=== PATIENT | female | born 1990 | race American Indian/Alaskan Native ===

== ENCOUNTER 2018-01-17 13:16 | Emergency (ER) | payer MEDICAID ==
[2018-01-17 14:36] LABS: Hematocrit 36.2 % (30.3-42.9); Hemoglobin 12.4 gm/dl (10.1-14.3); Mean Corpuscular HGB Conc 34 % (30-34); Mean Corpuscular Hemoglobin 29 pg (28-32); Mean Corpuscular Volume 84 fl (79-97); Platelet Count 210 K/mm3 (140-440); Red Blood Count 4.29 M/mm3 (3.65-5.03); Red Cell Distribution Width 13.4 % (13.2-15.2)
[2018-01-17 14:51] LABS: BUN/Creatinine Ratio 14; Blood Urea Nitrogen 7 mg/dL (7-17); Hemolysis Index 8
--- NOTE | 2018-01-17 16:54 | Ultrasound Report ---
FINAL REPORT EXAM: US OB > = 14 WEEKS FETUS HISTORY: pain, cramping TECHNIQUE: Transabdominal OB ultrasound. PRIORS: None currently available. FINDINGS: Single intrauterine dates 19.5 weeks. AI equals June 08, 2018. This is 2 days older compared to the LMP and is within normal limits. EFW equals 309 g. Percentile equals 63%. BPD: 19.6 weeks. HC: 19.5 weeks. AC: 19.3 weeks. FL: 20.0 weeks. Eight C/AC ratio: 1.22. Within normal limits. Cephalic index: 79.2. Within normal limits. Presentation: Cephalic. Placenta: Posterior. Grade 0. No previa. heart rate: 148 BPM. Amniotic fluid index: Within normal limits. Closed cervix measures 3.7 cm. Visualized cord plexus, cisterna magnum, cerebellum, lateral ventricles, stomach, kidneys, bladder, diaphragm, four-chamber heart, and three-vessel cord insertion are within normal limits. IMPRESSION: Single live intrauterine .
[2018-01-17 17:29] VITALS: BP 105/58
[2018-01-17 18:25] LABS: Bilirubin,Urine NEG (Negative); Mucus,Urine 3+ /HPF
[2018-01-17 18:27] LABS: Color,Urine Yellow (Yellow)
[2018-01-17 18:28] LABS: Blood,Urine Small (Negative)
--- NOTE | 2018-01-17 18:35 | Emergency Department Report ---
ED Female HPI - General Chief complaint: Abdominal Pain Stated complaint: ABDOMINAL PAIN Time Seen by Provider: 01/17/18 17:26 Source: patient Mode of arrival: Ambulatory Limitations: No Limitations - History of Present Illness MD Complaint: pelvic pain (She is A0, 19 week , c/o lower abdominal pain started today, contractions like, every 5 minutes, not associated with vaginal bleeding, fever, nausea or vomiting. ) - Related Data Previous Rx's Medication Instructions Recorded Last Taken Type Acetaminophen/Codeine [Tylenol #3] 1 tab PO BID PRN #10 tab 03/04/15 Unknown Rx methylPREDNISolone [Medrol Dose 8 mg PO QAM #1 tab.ds.pk 03/04/15 Unknown Rx Evangelista] Promethazine [Phenergan] 25 mg PO Q6H PRN #12 tablet 03/26/15 Unknown Rx Acetaminophen/Codeine [Tylenol #3] 1 tab PO Q6H PRN #14 tab 07/20/15 Unknown Rx Nitrofurantoin [place]/M-Cryst 100 mg PO Q12HR #14 capsule 07/20/15 Unknown Rx [Macrobid CAP] HYDROcodone/APAP 5-325 [[place] 1 each PO Q6HR PRN #30 tablet 10/01/15 Unknown Rx 5-325 mg TAB] Cephalexin [Keflex] 500 mg PO QID 10 Days capsule 01/17/18 Unknown Rx Allergies Allergy/AdvReac Type Severity Reaction Status Date / Time No Known Allergies Allergy Verified 10/04/13 01:15 ED Review of Systems ROS: Stated complaint: ABDOMINAL PAIN Other details as noted in HPI Constitutional: denies: chills, fever Eyes: denies: eye pain, eye discharge, vision change ENT: denies: ear pain, throat pain Respiratory: denies: cough, shortness of breath, wheezing Cardiovascular: denies: chest pain, palpitations Endocrine: no symptoms reported Gastrointestinal: abdominal pain. denies: nausea, diarrhea Genitourinary: denies: urgency, dysuria, discharge Musculoskeletal: denies: back pain, joint swelling, arthralgia Skin: denies: rash, lesions Neurological: denies: headache, weakness, paresthesias Psychiatric: denies: anxiety, depression Hematological/Lymphatic: denies: easy bleeding, easy bruising ED Past Medical Hx - Past Medical History Hx Asthma: Yes (hx bronchitis - last episode of dec 08) Additional medical history: bronchitis. murmur - Surgical History Past Surgical History?: No - Social History Smoking Status: Never Smoker Substance Use Type: None - Medications Home Medications: Home Medications Medication Instructions Recorded Confirmed Last Taken Type Acetaminophen/Codeine [Tylenol #3] 1 tab PO BID PRN #10 tab 03/04/15 Unknown Rx methylPREDNISolone [Medrol Dose 8 mg PO QAM #1 tab.ds.pk 03/04/15 Unknown Rx Evangelista] Promethazine [Phenergan] 25 mg PO Q6H PRN #12 tablet 03/26/15 Unknown Rx Acetaminophen/Codeine [Tylenol #3] 1 tab PO Q6H PRN #14 tab 07/20/15 Unknown Rx Nitrofurantoin [place]/M-Cryst 100 mg PO Q12HR #14 capsule 07/20/15 Unknown Rx [Macrobid CAP] HYDROcodone/APAP 5-325 [[place] 1 each PO Q6HR PRN #30 tablet 10/01/15 Unknown Rx 5-325 mg TAB] Cephalexin [Keflex] 500 mg PO QID 10 Days capsule 01/17/18 Unknown Rx ED Physical Exam - General Limitations: No Limitations General appearance: alert, in no apparent distress - Head Head exam: Present: atraumatic, normocephalic - Eye Eye exam: Present: normal appearance - ENT ENT exam: Present: mucous membranes moist - Neck Neck exam: Present: normal inspection - Respiratory Respiratory exam: Present: normal lung sounds bilaterally. Absent: respiratory distress - Cardiovascular Cardiovascular Exam: Present: regular rate, normal rhythm. Absent: systolic murmur, diastolic murmur, rubs, gallop - GI/Abdominal GI/Abdominal exam: Present: soft, normal bowel sounds, other (gravid uterus) - Extremities Exam Extremities exam: Present: normal inspection - Back Exam Back exam: Present: normal inspection - Neurological Exam Neurological exam: Present: alert, oriented X3 - Psychiatric Psychiatric exam: Present: normal affect, normal mood - Skin Skin exam: Present: warm, dry, intact, normal color. Absent: rash ED Course Vital Signs 01/17/18 01/17/18 13:23 17:24 Temperature 98.0 F 98.4 F Pulse Rate 107 H 87 Respiratory 16 20 Rate Blood Pressure 99/61 105/58 O2 Sat by Pulse 99 97 Oximetry ED Medical Decision Making - Lab Data Result diagrams: 01/17/18 14:24 01/17/18 14:24 Critical care attestation.: If time is entered above; I have spent that time in minutes in the direct care of this critically ill patient, excluding procedure time. ED Disposition Clinical Impression: Urinary tract infection affecting care of mother in second trimester, antepartum Abdominal pain Qualifiers: Abdominal location: unspecified location Qualified Code(s): R10.9 - Unspecified abdominal pain Disposition: TO HOME OR SELFCARE Is pt being admited?: No Does the pt Need Aspirin: No Condition: Stable Instructions: Abdominal Pain (ED) Additional Instructions: UTI Prescriptions: Cephalexin [Keflex] 500 mg PO QID 10 Days capsule Referrals: PRIMARY CARE, [Primary Care Provider] - 3-5 Days
== END 2018-01-17 18:55 | disposition home or self-care (01) ==
LOC: ED 13:16
DX: O23.42 Unspecified infection of urinary tract in pregnancy, second trimester (principal); Z3A.19 19 weeks gestation of pregnancy; R10.9 Unspecified abdominal pain
CPT/HCPCS: 36415; 76805; 80048; 81001; 84702; 85027; 86850; 86900; 86901